=== PATIENT | male | born 1950 | race Caucasian/White ===

== ENCOUNTER 2021-10-07 20:07 | Inpatient (IN) ==
[2021-10-08] MEDS ORDERED: Ondansetron 4 MG/2 ML VIAL IVP PRN (01:57)
[2021-10-08] MEDS ORDERED: Naloxone 0.4 MG/ML INJ IVP PRN (01:57)
[2021-10-08] MEDS ORDERED: Dextrose Gel 15 GM/37.5 ML TUBE PO PRN ×2 (02:00)
[2021-10-08] MEDS ORDERED: *HR* Dextrose 50 % in Water (Syg) 50 ML SYRINGE IVP PRN (02:00)
[2021-10-08] MEDS ORDERED: D5% in Water 1,000 ML IVC PRN (02:00)
[2021-10-08 04:15] LABS: Bilirubin,Urine Negative (Negative); Blood,Urine Moderate (Negative); Clarity,Urine Clear (Clear); Color,Urine Yellow (Yellow); Glucose,Urine (UA) Normal (Normal); Ketones,Urine Negative (Negative); Leukocyte Esterase,Urine Negative (Negative); Nitrite,Urine Negative (Negative); PH,Urine 5.5 pH Units (5.0-8.0); Protein,Urine Negative (Neg-Trace); Urobilinogen,Urine Normal (Normal)
[2021-10-08 04:33] LABS: Hyaline Casts,Urine Few per lpf (None Seen); Squamous Epithelial Cell,Urine Few per hpf (None-Few)
[2021-10-08] MEDS: Acetaminophen 325 MG TABLET PO PRN (05:54)
[2021-10-08 07:42] LABS: Basophils % 0.3 %; Eosinophils # 0.3 K/mcL (0.0-0.6); Eosinophils % 3.5 %; Hematocrit 23.7 % (37.5-50.1); Hemoglobin 7.2 g/dL (12.9-16.9); Immature Granulocytes % 4.7 % (0-4); Lymphocytes # 0.6 K/mcL (0.6-4.6); Mean Corpuscular HGB Conc 30.4 g/dL (31.6-35.5); Mean Corpuscular Hemoglobin 29.9 pg (28.0-33.3); Mean Corpuscular Volume 98.3 fL (83.0-100.0); Mean Platelet Volume 9.4 fL (9.4-12.4); Monocytes # 0.7 K/mcL (0.0-1.3); Monocytes % 7.8 %; Neutrophils # 6.6 K/mcL (1.6-8.9); Platelet Count 233 K/mcL (140-400); Red Blood Count 2.41 M/mcL (4.19-5.50); Red Cell Distribution Width 13.9 % (11.5-14.5); Segmented Neutrophils % 76.7 %; White Blood Count 8.7 K/mcL (4.3-11.1)
[2021-10-08 08:03] LABS: INR 1.6; Prothrombin Time 17.8 Seconds (9.4-12.1)
[2021-10-08 08:05] LABS: BUN/Creatinine Ratio 39 (6-26); Blood Urea Nitrogen 49 mg/dL (8-23); Calcium 7.8 mg/dL (8.6-10.3); Carbon Dioxide 30 mEq/L (23-29); Chloride 103 mEq/L (98-107); Glucose 133 mg/dL (70-105); Magnesium 2.2 mg/dL (1.6-2.6); Osmolality,Calculated 307 (280-300); Potassium 3.9 mEq/L (3.5-5.1); Sodium 141 mEq/L (136-145); eGFR For African Americans > 60 (> 60); eGFR For Non-African Americans 56 (> 60)
[2021-10-08] MEDS: Insulin LISPRO 300 UNITS/3 ML VIAL SUBQ SCH ×4 (08:21→21:19)
[2021-10-08] MEDS: Nystatin POWDER 30 GM BOTTLE TP SCH ×2 (08:24→21:19)
[2021-10-08] MEDS ORDERED: Furosemide 20 MG/2 ML VIAL IVP ONE (11:14)
[2021-10-08] MEDS: Gabapentin 300 MG CAPSULE PO SCH ×2 (11:20→21:18)
[2021-10-08] MEDS: amLODIPine 5 MG TABLET PO SCH (11:20)
[2021-10-08] MEDS: Furosemide 20 MG/2 ML VIAL IVP SCH ×2 (11:20→17:33)
[2021-10-08] MEDS: Cyanocobalamin (B-12) 1,000 MCG TABLET PO SCH (11:20)
[2021-10-08 16:11] LABS: % Iron Saturation 22 % (20-55); Iron 43 mcg/dL (65-175); Transferrin 138 mg/dL (203-362)
[2021-10-08] MEDS: Budesonide/Formoterol 160/4.5 1 PUFF INH IH SCH (21:56)
[2021-10-08 23:27] LABS: Adenovirus Not Detected (Not Detect); Bordetella Pertussis Not Detected (Not Detect); Chlamydophila pneumoniae Not Detected (Not Detect); Coronavirus 229E Not Detected (Not Detect); Coronavirus HKU1 Not Detected (Not Detect); Coronavirus NL63 Not Detected (Not Detect); Coronavirus OC43 Not Detected (Not Detect); Human Metapneumovirus Not Detected (Not Detect); Human Rhinovirus/Enterovirus Not Detected (Not Detect); Influenza A Subtype 2009 H1 Not Detected (Not Detect); Influenza B Not Detected (Not Detect); Mycoplasma pneumoniae Not Detected (Not Detect); Parainfluenza Virus 1 Not Detected (Not Detect); Parainfluenza Virus 2 Not Detected (Not Detect); Parainfluenza Virus 3 Not Detected (Not Detect); Parainfluenza Virus 4 Not Detected (Not Detect); Respiratory Syncytial Virus Not Detected (Not Detect); SARS-CoV-2 Not Detected (Not Detect)
[2021-10-09] MEDS: Acetaminophen 325 MG TABLET PO PRN (00:32)
[2021-10-09 07:36] LABS: Hematocrit 24.5 % (37.5-50.1); Hemoglobin 7.7 g/dL (12.9-16.9); Mean Corpuscular HGB Conc 31.4 g/dL (31.6-35.5); Mean Corpuscular Hemoglobin 30.8 pg (28.0-33.3); Mean Platelet Volume 9.2 fL (9.4-12.4); Platelet Count 254 K/mcL (140-400); Red Cell Distribution Width 13.9 % (11.5-14.5); White Blood Count 8.4 K/mcL (4.3-11.1)
[2021-10-09] MEDS: Insulin LISPRO 300 UNITS/3 ML VIAL SUBQ SCH ×4 (07:51→20:13)
[2021-10-09] MEDS: amLODIPine 5 MG TABLET PO SCH (07:52)
[2021-10-09] MEDS: Furosemide 20 MG/2 ML VIAL IVP SCH ×2 (07:52→16:51)
[2021-10-09] MEDS: Cyanocobalamin (B-12) 1,000 MCG TABLET PO SCH (07:52)
[2021-10-09] MEDS: Gabapentin 300 MG CAPSULE PO SCH ×2 (07:52→20:12)
[2021-10-09] MEDS: Nystatin POWDER 30 GM BOTTLE TP SCH ×2 (07:53→20:14)
[2021-10-09 07:58] LABS: BUN/Creatinine Ratio 32 (6-26); Blood Urea Nitrogen 44 mg/dL (8-23); Calcium 7.6 mg/dL (8.6-10.3); Carbon Dioxide 29 mEq/L (23-29); Chloride 103 mEq/L (98-107); Glucose 114 mg/dL (70-105); Osmolality,Calculated 304 (280-300); Sodium 141 mEq/L (136-145); eGFR For African Americans > 60 (> 60); eGFR For Non-African Americans 51 (> 60)
[2021-10-09] MEDS ORDERED: 0.9 % Sodium Chloride 250 ML IVC SCH (08:00)
[2021-10-09] MEDS: Cholecalciferol (D-3) 1,000 UNIT (25MCG) TABLET PO SCH (08:03)
[2021-10-09] MEDS: Budesonide/Formoterol 160/4.5 1 PUFF INH IH SCH ×2 (09:25→21:28)
[2021-10-10] MEDS: Acetaminophen 325 MG TABLET PO PRN (00:11)
[2021-10-10 07:43] LABS: Calcium 7.6 mg/dL (8.6-10.3); Potassium 4.1 mEq/L (3.5-5.1)
[2021-10-10] MEDS: Gabapentin 300 MG CAPSULE PO SCH ×2 (07:55→20:13)
[2021-10-10] MEDS: Cholecalciferol (D-3) 1,000 UNIT (25MCG) TABLET PO SCH (07:55)
[2021-10-10] MEDS: Cyanocobalamin (B-12) 1,000 MCG TABLET PO SCH (07:55)
[2021-10-10] MEDS: Furosemide 20 MG/2 ML VIAL IVP SCH (07:55)
[2021-10-10] MEDS: amLODIPine 5 MG TABLET PO SCH (07:55)
[2021-10-10] MEDS: Nystatin POWDER 30 GM BOTTLE TP SCH ×2 (07:56→20:13)
[2021-10-10] MEDS: Insulin LISPRO 300 UNITS/3 ML VIAL SUBQ SCH ×4 (07:58→22:16)
[2021-10-10] MEDS: Budesonide/Formoterol 160/4.5 1 PUFF INH IH SCH ×2 (08:46→20:22)
[2021-10-10 08:52] LABS: Hematocrit 28.4 % (37.5-50.1); Hemoglobin 8.9 g/dL (12.9-16.9); Mean Corpuscular HGB Conc 31.3 g/dL (31.6-35.5); Mean Corpuscular Hemoglobin 30.2 pg (28.0-33.3); Mean Corpuscular Volume 96.3 fL (83.0-100.0); Mean Platelet Volume 9.1 fL (9.4-12.4); Platelet Count 270 K/mcL (140-400); Red Blood Count 2.95 M/mcL (4.19-5.50); Red Cell Distribution Width 14.4 % (11.5-14.5); White Blood Count 11.5 K/mcL (4.3-11.1)
[2021-10-10] MEDS: Ipratropium/Albuterol Neb 3 ML IH PRN (20:23)
[2021-10-11] MEDS ORDERED: Furosemide 20 MG TABLET PO SCH (08:00)
[2021-10-11 08:48] LABS: Hematocrit 24.4 % (37.5-50.1); Hemoglobin 7.8 g/dL (12.9-16.9); Mean Corpuscular Hemoglobin 30.8 pg (28.0-33.3); Mean Corpuscular Volume 96.4 fL (83.0-100.0); Mean Platelet Volume 9.3 fL (9.4-12.4); Platelet Count 258 K/mcL (140-400); Red Blood Count 2.53 M/mcL (4.19-5.50); Red Cell Distribution Width 14.5 % (11.5-14.5); White Blood Count 11.6 K/mcL (4.3-11.1)
[2021-10-11 09:04] LABS: BUN/Creatinine Ratio 34 (6-26); Blood Urea Nitrogen 46 mg/dL (8-23); Calcium 7.5 mg/dL (8.6-10.3); Carbon Dioxide 27 mEq/L (23-29); Chloride 102 mEq/L (98-107); Glucose 102 mg/dL (70-105); Osmolality,Calculated 300 (280-300); Sodium 139 mEq/L (136-145); eGFR For African Americans > 60 (> 60); eGFR For Non-African Americans 52 (> 60)
[2021-10-11] MEDS: Insulin LISPRO 300 UNITS/3 ML VIAL SUBQ SCH ×4 (09:22→21:56)
[2021-10-11] MEDS: Gabapentin 300 MG CAPSULE PO SCH ×2 (09:23→21:31)
[2021-10-11] MEDS: Nystatin POWDER 30 GM BOTTLE TP SCH ×2 (09:23→21:32)
[2021-10-11] MEDS: amLODIPine 5 MG TABLET PO SCH (09:23)
[2021-10-11] MEDS: Cyanocobalamin (B-12) 1,000 MCG TABLET PO SCH (09:23)
[2021-10-11] MEDS: Cholecalciferol (D-3) 1,000 UNIT (25MCG) TABLET PO SCH (09:24)
[2021-10-11] MEDS: Budesonide/Formoterol 160/4.5 1 PUFF INH IH SCH ×2 (10:12→22:26)
[2021-10-11] MEDS: Ipratropium/Albuterol Neb 3 ML IH PRN ×2 (10:17→22:26)
[2021-10-11 14:04] LABS: Adenovirus Not Detected (Not Detect); Bordetella Pertussis Not Detected (Not Detect); Chlamydophila pneumoniae Not Detected (Not Detect); Coronavirus 229E Not Detected (Not Detect); Coronavirus HKU1 Not Detected (Not Detect); Coronavirus NL63 Not Detected (Not Detect); Coronavirus OC43 Not Detected (Not Detect); Human Metapneumovirus Not Detected (Not Detect); Human Rhinovirus/Enterovirus Not Detected (Not Detect); Influenza A Subtype 2009 H1 Not Detected (Not Detect); Influenza B Not Detected (Not Detect); Mycoplasma pneumoniae Not Detected (Not Detect); Parainfluenza Virus 1 Not Detected (Not Detect); Parainfluenza Virus 2 Not Detected (Not Detect); Parainfluenza Virus 3 Not Detected (Not Detect); Parainfluenza Virus 4 Not Detected (Not Detect); Respiratory Syncytial Virus Not Detected (Not Detect); SARS-CoV-2 Not Detected (Not Detect)
[2021-10-11] MEDS: Acetaminophen 325 MG TABLET PO PRN (21:31)
[2021-10-11] MEDS: Azithromycin 500 MG in 0.9 % Sodium Chloride 250 ML IVPB SCH (21:34)
[2021-10-11] MEDS: cefTRIAXone 2,000 MG in 0.9 % Sodium Chloride Mini Bag 100 ML IVPB SCH (21:52)
[2021-10-11] MEDS: Furosemide 40 MG TABLET PO SCH (21:54)
[2021-10-12] MEDS: Budesonide/Formoterol 160/4.5 1 PUFF INH IH SCH ×2 (08:30→21:35)
[2021-10-12 08:32] LABS: Basophils % 0.3 %; Eosinophils # 0.3 K/mcL (0.0-0.6); Eosinophils % 2.1 %; Hematocrit 25.3 % (37.5-50.1); Hemoglobin 7.9 g/dL (12.9-16.9); Immature Granulocytes % 4.2 % (0-4); Lymphocytes # 0.7 K/mcL (0.6-4.6); Lymphocytes % 5.5 %; Mean Corpuscular HGB Conc 31.2 g/dL (31.6-35.5); Mean Corpuscular Hemoglobin 30.6 pg (28.0-33.3); Mean Corpuscular Volume 98.1 fL (83.0-100.0); Mean Platelet Volume 9.2 fL (9.4-12.4); Monocytes # 0.9 K/mcL (0.0-1.3); Monocytes % 7.5 %; Neutrophils # 9.7 K/mcL (1.6-8.9); Platelet Count 257 K/mcL (140-400); Red Blood Count 2.58 M/mcL (4.19-5.50); Red Cell Distribution Width 14.9 % (11.5-14.5); Segmented Neutrophils % 80.4 %; White Blood Count 12.1 K/mcL (4.3-11.1)
[2021-10-12] MEDS: Ipratropium/Albuterol Neb 3 ML IH PRN (08:32)
[2021-10-12] MEDS: Gabapentin 300 MG CAPSULE PO SCH ×2 (08:33→20:51)
[2021-10-12] MEDS: Cyanocobalamin (B-12) 1,000 MCG TABLET PO SCH (08:33)
[2021-10-12] MEDS: Cholecalciferol (D-3) 1,000 UNIT (25MCG) TABLET PO SCH (08:33)
[2021-10-12] MEDS: Furosemide 40 MG TABLET PO SCH (08:33)
[2021-10-12] MEDS: amLODIPine 5 MG TABLET PO SCH (08:33)
[2021-10-12] MEDS: Nystatin POWDER 30 GM BOTTLE TP SCH ×2 (08:33→20:53)
[2021-10-12] MEDS: Insulin LISPRO 300 UNITS/3 ML VIAL SUBQ SCH ×4 (08:39→23:49)
[2021-10-12 09:10] LABS: BUN/Creatinine Ratio 35 (6-26); Blood Urea Nitrogen 47 mg/dL (8-23); Calcium 7.6 mg/dL (8.6-10.3); Carbon Dioxide 29 mEq/L (23-29); Chloride 102 mEq/L (98-107); Glucose 107 mg/dL (70-105); Osmolality,Calculated 303 (280-300); Potassium 4.3 mEq/L (3.5-5.1); Sodium 140 mEq/L (136-145); eGFR For African Americans > 60 (> 60); eGFR For Non-African Americans 51 (> 60)
[2021-10-12] MEDS: MethylPREDNISolone 40 MG/ML VIAL IVP SCH ×2 (11:40→20:51)
[2021-10-12] MEDS ORDERED: Furosemide 40 MG/4 ML VIAL IVP ONE (13:50)
[2021-10-12] MEDS: cefTRIAXone 2,000 MG in 0.9 % Sodium Chloride Mini Bag 100 ML IVPB SCH (16:37)
[2021-10-12] MEDS ORDERED: *HR* LORazepam 1 MG TABLET PO ONE (17:28)
[2021-10-12] MEDS: Azithromycin 500 MG in 0.9 % Sodium Chloride 250 ML IVPB SCH (17:43)
[2021-10-12] MEDS: Ipratropium/Albuterol Neb 3 ML IH SCH ×2 (18:01→21:35)
[2021-10-13] MEDS: Ipratropium/Albuterol Neb 3 ML IH SCH ×4 (04:56→22:27)
[2021-10-13] MEDS: MethylPREDNISolone 40 MG/ML VIAL IVP SCH ×4 (05:18→20:09)
[2021-10-13 07:42] LABS: Basophils % 0.1 %; Hematocrit 23.4 % (37.5-50.1); Hemoglobin 7.3 g/dL (12.9-16.9); Immature Granulocytes % 3.1 % (0-4); Lymphocytes # 0.4 K/mcL (0.6-4.6); Lymphocytes % 3.4 %; Mean Corpuscular HGB Conc 31.2 g/dL (31.6-35.5); Mean Corpuscular Hemoglobin 30.2 pg (28.0-33.3); Mean Corpuscular Volume 96.7 fL (83.0-100.0); Mean Platelet Volume 9.1 fL (9.4-12.4); Monocytes # 0.2 K/mcL (0.0-1.3); Neutrophils # 10.2 K/mcL (1.6-8.9); Platelet Count 214 K/mcL (140-400); Red Blood Count 2.42 M/mcL (4.19-5.50); Red Cell Distribution Width 14.6 % (11.5-14.5); Segmented Neutrophils % 91.4 %; White Blood Count 11.1 K/mcL (4.3-11.1)
[2021-10-13 08:00] LABS: BUN/Creatinine Ratio 41 (6-26); Blood Urea Nitrogen 54 mg/dL (8-23); Calcium 7.4 mg/dL (8.6-10.3); Carbon Dioxide 27 mEq/L (23-29); Chloride 102 mEq/L (98-107); Glucose 184 mg/dL (70-105); Osmolality,Calculated 308 (280-300); Potassium 4.9 mEq/L (3.5-5.1); Sodium 139 mEq/L (136-145); eGFR For African Americans > 60 (> 60); eGFR For Non-African Americans 53 (> 60)
[2021-10-13] MEDS: Budesonide/Formoterol 160/4.5 1 PUFF INH IH SCH ×2 (08:08→22:23)
[2021-10-13] MEDS: Gabapentin 300 MG CAPSULE PO SCH ×2 (08:36→20:18)
[2021-10-13] MEDS: Cyanocobalamin (B-12) 1,000 MCG TABLET PO SCH (08:36)
[2021-10-13] MEDS: amLODIPine 5 MG TABLET PO SCH (08:37)
[2021-10-13] MEDS: Cholecalciferol (D-3) 1,000 UNIT (25MCG) TABLET PO SCH (08:38)
[2021-10-13] MEDS: Furosemide 40 MG TABLET PO SCH ×2 (08:38→16:40)
[2021-10-13] MEDS: Insulin LISPRO 300 UNITS/3 ML VIAL SUBQ SCH ×4 (08:39→20:18)
[2021-10-13] MEDS: Nystatin POWDER 30 GM BOTTLE TP SCH ×2 (11:21→20:18)
[2021-10-13 14:28] LABS: ABG Base Excess -1 mEq/L (-2 to 3); ABG HCO3 25 mEq/L (21-27); ABG Oxygen Saturation 95 % (95-98); ABG PCO2 45 mmHg (35-45); ABG PH 7.35 pH Units (7.32-7.45); ABG PO2 77 mmHg (85-104); ABG TCO2 27 mEq/L (20-26)
[2021-10-13] MEDS: *HR* Rivaroxaban 10 MG TABLET PO SCH (16:40)
[2021-10-13] MEDS: cefTRIAXone 2,000 MG in 0.9 % Sodium Chloride Mini Bag 100 ML IVPB SCH (20:14)
[2021-10-13] MEDS: Azithromycin 500 MG in 0.9 % Sodium Chloride 250 ML IVPB SCH (20:15)
[2021-10-13] MEDS ORDERED: *HR* LORazepam 1 MG TABLET PO ONE (22:31)
[2021-10-13] MEDS ORDERED: Simethicone 80 MG TAB.CHEW PO PRN (22:31)
[2021-10-14] MEDS: Ipratropium/Albuterol Neb 3 ML IH SCH ×4 (03:49→21:49)
[2021-10-14] MEDS: MethylPREDNISolone 40 MG/ML VIAL IVP SCH ×2 (05:28→16:25)
[2021-10-14 07:23] LABS: Basophils % 0.1 %; Hematocrit 25.1 % (37.5-50.1); Hemoglobin 7.7 g/dL (12.9-16.9); Immature Granulocytes % 2.4 % (0-4); Lymphocytes # 0.4 K/mcL (0.6-4.6); Lymphocytes % 2.6 %; Mean Corpuscular HGB Conc 30.7 g/dL (31.6-35.5); Mean Corpuscular Volume 97.7 fL (83.0-100.0); Mean Platelet Volume 9.6 fL (9.4-12.4); Monocytes % 2.9 %; Neutrophils # 14.1 K/mcL (1.6-8.9); Platelet Count 297 K/mcL (140-400); Red Blood Count 2.57 M/mcL (4.19-5.50); White Blood Count 15.3 K/mcL (4.3-11.1)
[2021-10-14 07:24] LABS: Monocytes # 0.4 K/mcL (0.0-1.3)
[2021-10-14 07:39] LABS: Calcium 7.5 mg/dL (8.6-10.3); Potassium 5.1 mEq/L (3.5-5.1)
[2021-10-14 08:07] LABS: ABG Base Excess 0 mEq/L (-2 to 3); ABG HCO3 25 mEq/L (21-27); ABG Oxygen Saturation 93 % (95-98); ABG PCO2 44 mmHg (35-45); ABG PH 7.37 pH Units (7.32-7.45); ABG PO2 69 mmHg (85-104); ABG TCO2 27 mEq/L (20-26)
[2021-10-14] MEDS: amLODIPine 5 MG TABLET PO SCH (08:28)
[2021-10-14] MEDS: Insulin LISPRO 300 UNITS/3 ML VIAL SUBQ SCH ×3 (08:28→16:34)
[2021-10-14] MEDS: Gabapentin 300 MG CAPSULE PO SCH ×2 (08:28→20:11)
[2021-10-14] MEDS: Cholecalciferol (D-3) 1,000 UNIT (25MCG) TABLET PO SCH (08:28)
[2021-10-14] MEDS: Cyanocobalamin (B-12) 1,000 MCG TABLET PO SCH (08:29)
[2021-10-14] MEDS: Nystatin POWDER 30 GM BOTTLE TP SCH ×2 (08:33→20:16)
[2021-10-14] MEDS ORDERED: Albumin 25% 25gram/100mL 25 GM/100 ML IV.SOLN IVPB SCH (09:00)
[2021-10-14] MEDS ORDERED: Furosemide 40 MG/4 ML VIAL IVP SCH ×2 (09:00)
[2021-10-14] MEDS: Budesonide/Formoterol 160/4.5 1 PUFF INH IH SCH ×2 (09:21→21:46)
[2021-10-14] MEDS ORDERED: *HR* LORazepam 0.5 MG TABLET PO PRN (11:57)
[2021-10-14] MEDS ORDERED: MOM Conc 10 ML UD.LIQ PO PRN (14:08)
[2021-10-14] MEDS ORDERED: Piperacillin/Tazobactam 3.375 GM in 0.9 % Sodium Chloride Mini Bag 100 ML IVPB SCH (16:00)
[2021-10-14] MEDS: *HR* Rivaroxaban 10 MG TABLET PO SCH (16:18)
[2021-10-14] MEDS ORDERED: Bumetanide 1 MG/4 ML VIAL IVP SCH (17:00)
[2021-10-14 19:07] VITALS: BP 159/74; PULSE 68; TEMP 96.7
[2021-10-14] MEDS ORDERED: diazePAM 10 MG/2 ML SYRINGE IVP STA (21:49)
[2021-10-14 23:47] VITALS: RESP 24; O2SAT 97
== END 2021-10-14 22:20 | disposition other institution (70) | DRG 291 ==
LOC: INPPIK
PROVIDERS: ADMIT Student in an Organized Health Care Education/Training Program; ATTEND Student in an Organized Health Care Education/Training Program